=== PATIENT | female | born 1960 | race Caucasian/White ===

== ENCOUNTER 2025-01-08 14:03 | Emergency (ER) | payer MEDICAID, SELFPAY ==
[2025-01-08 14:03] VITALS: BMI 17.9
[2025-01-08 14:09] VITALS: BP 124/75; PULSE 109; RESP 20; TEMP 36.6; O2SAT 96
--- NOTE | 2025-01-08 14:49 | PD.EDWOUND ---
ED Wound/Laceration-RME/HPI General Chief Complaint: Wound/Laceration Stated Complaint: LAC TO R HAND Time Seen by Provider: 01/08/25 14:28 Source: patient Arrival date/time: 01/08/25 14:03 64-year-old female presents to the ED with a complaint of laceration to the palm of her right hand. Mode of arrival: ambulatory Limitations: no limitations RME / HPI Extremity Location: Right: hand Place: home Patient tetanus UTD: Yes Context: accidental (Patient slipped and fell onto a metallic object. ) Related Data Allergies Allergy/AdvReac Type Severity Reaction Status Date / Time Penicillins Allergy Swelling Verified 01/08/25 14:05 of Lip/Tongue/Throat Review of Systems Constitutional Constitutional: Reports system reviewed and no additional complaints, except as documented Eyes Eyes: Reports system reviewed and no additional complaints, except as documented, Denies dry eyes, Denies exophthalmos and Reports floaters Cardiovascular Cardiovascular: Denies chest pain with activity and Denies claudication ED Exam Narrative Physical exam: I have centimeter laceration at the plantar eminence. There does not appear to be any bony deformity or any tendon involvement. Patient continues to retains full range of motion of all digits of right hand. There is no apparent foreign body seen. Neurovascular is intact and there is no apparent neurofocal deficit present. General Limitations: Present no limitations General appearance: Present alert and in no apparent distress Head Head exam: Present atraumatic Eye Eye exam: Present normal appearance, PERRL and EOMI ENT ENT exam: Present normal exam, normal oropharynx and mucous membranes moist Neck Neck exam: Present normal inspection, full ROM and trachea midline Chest Chest inspection: Present normal inspection and symmetric chest wall rise Respiratory Respiratory exam: Present normal lung sounds bilaterally Extremities Exam Extremities exam: Present normal inspection and full ROM Back Exam Back exam: Present normal inspection and full ROM Neurological Exam Neurological exam: Present alert and oriented X3 Psychiatric Psychiatric exam: Present normal affect and normal mood Skin Skin exam: Present warm, dry, intact (4-1/2 cm laceration to the right hand. It is well-approximated. It is linear) and normal color Course Course Course Narrative: Patient will have a tetanus update as well as repair of the laceration. Quality Measures none Orders Category Date Time Status Dress wound [Wound Care] NOW Care 01/08/25 15:24 Active Set Up Suture Tray STAT Care 01/08/25 14:30 Active TDap [Obtain Tdap Consent] X1 Care 01/08/25 14:56 Active Wound Care NOW Care 01/08/25 14:30 Active Lidocaine 1% 20 ml [Xylocaine 1% 20 ML] Med 01/08/25 14:28 Discontinued 20 ml INFL X1 ONE TET,DIP/PERT AC (Adult)-Tdap [Boostrix Adult (Tdap) Med 01/08/25 15:23 Discontinued Vacc] 0.5 ml IMI .ONCE ONE Done Vital Signs Vital signs: Vital Signs Temperature 97.8 F 01/08/25 14:09 Pulse Rate 109 H 01/08/25 14:09 Respiratory Rate 20 01/08/25 14:09 Blood Pressure 124/75 01/08/25 14:09 Pulse Oximetry (%) 96 01/08/25 14:09 Oxygen Delivery Method Room Air 01/08/25 14:09 Pulse ox is 96% room air. Procedures -ED Laceration Laceration 1: Site: hand (Right) Side (If applicable): right Description: linear Depth: simple, single layer Local Anesthetic: lidocaine 1% Amount of anesthesia used (mL): 12 Pre-repair: wound explored and irrigated extensively Skin layer closed with: nylon Technique: simple, interrupted Size: 4-0 Number of sutures: 10 Technique: simple, interrupted Wound / Laceration MDM Narrative MDM Narrative:: Patient will have her wound dressed. She will have a tetanus and then she will be sent home with instructions to follow-up with primary care physician in 2 days for recheck. Patient to return sooner changes worse not better no signs of infection. Patient is discharged home in no apparent distress Patient data External records reviewed:: Other (specify) Clinical information provided by:: none Social determinants that could affect healthcare access:: none Patient has the following chronic illnesses:: Not applicable How is presenting disease/condition affected by chronic disease/condition?: no chronic disease Evaluation data The following diagnostics were reviewed and interpreted by me:: other (specify) (There was no labs, no radiology, and no EKG.) Lab and/or radiology exams considered but not ordered:: N/A Interpretation Summary: N/A Medications / Prescriptions Medications or Prescriptions considered but not ordered:: N/A Medication administrations:: Medication Administration History Discontinued Medications Diphtheria/Tetanus/Acell Pertussis (Diphth,Pertuss(Acell),Tet Vac 0.5 Ml Syr- Adult) 0.5 ml IMi .ONCE ONE Stop: 01/08/25 15:24 Lidocaine HCl (Lidocaine Hcl 1% 20 Ml Vial) 20 ml INFL X1 ONE Stop: 01/08/25 14:29 N/A Consultations Consultation(s) initiated? (list below): No Diagnosis Wound Differential Diagnosis: laceration Most likely diagnosis given after review of the tests above:: Not applicable Admission Indicated Admission indicated?: not indicated Admission Request Was there a request for admission?: No Disposition Plan Disposition Plan: Discharge Discharge Attestation Discharge Attestation: The patient and all family members were given an opportunity to ask questions and understood the discharge instructions. Discharge instructions specifically effects, indications for sooner follow up or return to the emergency department, and the expected course of current diagnosis. Patient condition: Stable Discharge Plan Plan Patient Disposition: HOME (Self Care) Discharge Disposition comment: Patient is discharged in no apparent distress Patient condition on transfer: Stable Problem List Clinical Impression: Laceration Patient/Caregiver Discharge Instructions Discharge Activity: activity as tolerated Other Activity Instructions:: Please keep the wound clean and dry or at least the dressing clean and dry. Follow-up with primary care physician in 2 days for follow-up to today's laceration repair Print Language: Frisian Stand Alone Forms: Marni Award Info., Patient Portal Info Letter ESTELITA/RAISA Supervising Physician ESTELITA/RAISA Supervising Physician: Waldemar
[2025-01-08] MEDS: DIPHTH,PERTUSS(ACELL),TET VAC 0.5 ML SYR- ADULT IMi (15:29)
[2025-01-08] MEDS: LIDOCAINE HCL 1% 20 ML VIAL INFL (15:31)
== END 2025-01-08 15:36 | disposition home or self-care (01) ==
LOC: SERX 16:01
PROVIDERS: Emergency Provider Emergency Medicine
DX: S61.411A Laceration without foreign body of right hand, initial encounter (principal); W01.198A Fall on same level from slipping, tripping and stumbling with subsequent striking against other object, initial encounter; Z23 Encounter for immunization
CPT/HCPCS: 12002; 90471; 90715; 99283; J3490